=== PATIENT | female | born 1980 | race Caucasian/White ===

== ENCOUNTER 2023-12-29 12:32 | Emergency (ER) | payer BC, SELFPAY ==
[2023-12-29 12:44] VITALS: BP 162/93; PULSE 64; RESP 17; TEMP 37; O2SAT 99; BMI 36.6
--- NOTE | 2023-12-29 14:23 | CT_ITS ---
Patient: ANGEL ABDULLAHI Facility:?[facility] Patient ID:?[id number] Site Patient ID:?[id number]. Site :?1980 Study:?CT-Head w/o-12/29/2023 2:41:59 PM Ordering Physician:David Andino Final Report: INDICATION: Ptosis. Headaches. Sinus symptoms. TECHNIQUE: CT of the head without contrast. Coronal and sagittal reformats are included. COMPARISON: None. FINDINGS: No acute intracranial hemorrhage. No mass effect or midline shift. No hydrocephalus or extra-axial collections. White matter is within normal limits for age. No acute osseous abnormalities. A right maxillary sinus retention cyst. Paranasal sinuses and mastoid air cells are otherwise clear. Normal soft tissues. IMPRESSION: IMPRESSION: 1. No acute intracranial abnormalities. Please note that all CT scans at this facility use dose modulation, iterative reconstruction, and/or weight-based dosing when appropriate to reduce radiation dose to as low as reasonably achievable. Dictated by Arnaldo Little MD @ 12/29/2023 3:11:57 PM Signed by:?Arnaldo Little MD @12/29/2023 3:11:57 PM (Electronic Signature)
--- NOTE | 2023-12-29 14:23 | CT_ITS ---
Patient: ANGEL ABDULLAHI Facility:?[facility] Patient ID:?[id number] Site Patient ID:?[id number]. Site :?1980 Study:?CT-Facial w/o-12/29/2023 2:42:50 PM Ordering Physician:David Andino Final Report: INDICATION: Right-sided ptosis. Headaches. TECHNIQUE: CT of the face without contrast. Coronal reconstructions are included. COMPARISON: None. FINDINGS: There is a deformity of the right-sided lamina papyracea. There is associated medial herniation of orbital fat. No entrapment of the medial rectus muscle. No significant soft tissue injury. The orbital contents are normal in appearance. There is no evidence for penetrating injury to the ocular globes. The lenses are situated in their normally expected anterior locations. No radiodense or metallic foreign body is demonstrated. There is a right maxillary sinus retention cyst. Paranasal sinuses are otherwise clear. There is mild rightward nasal septal deviation. There is evidence of a right maxillary tooth extraction. There is a small amount of inflammatory changes within the adjacent buccal soft tissues. The visualized portions of the brain are normal in appearance. IMPRESSION: 1. 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 No entrapment of the medial rectus muscle. 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 2. Right maxillary sinus retention cyst. Paranasal sinuses are otherwise clear. 3. Evidence of right maxillary tooth extraction with mild associated inflammation. Please note that all CT scans at this facility use dose modulation, iterative reconstruction, and/or weight-based dosing when appropriate to reduce radiation dose to as low as reasonably achievable. Dictated by Arnaldo Little MD @ 12/29/2023 3:16:08 PM Signed by:?Arnaldo Little MD @12/29/2023 3:16:08 PM (Electronic Signature)
--- NOTE | 2023-12-29 14:25 | ED_ITS ---
HPI - Eye Problem General Chief complaint: Eye Problems Stated complaint: R eye discomfort, sluggishness Time Seen by Provider: 12/29/23 12:52 History of Present Illness HPI Narrative: This 43-year-old female comes in reporting which she described as a sluggish right eye. She states that it seems that her right eyelid responds more slowly when blinking and when opening and closing. She does report a headache around the right frontal area of her head. She has some light sensitivity and has had some nausea. She also states that she had a couple teeth removed about a month ago in the right upper row of teeth. She does have some facial pain in this area. She does not report any visual changes. She has not have dry eye or neurologic deficit. She does not have any fevers. Related Data Home Medications Medication Instructions Recorded Confirmed bupropion HCl 150 mg 24 hr tablet, 150 mg PO QAM 12/29/23 12/29/23 extended release hydrochlorothiazide 12.5 mg tablet 12.5 mg PO DAILY 12/29/23 12/29/23 lisinopril 40 mg tablet 40 mg PO DAILY 12/29/23 12/29/23 lorazepam 0.5 mg tablet 0.5 mg PO BID PRN anxiety 12/29/23 12/29/23 Previous Rx's Medication Instructions Recorded amoxicillin 875 mg-potassium 1 tab PO BID #14 tabs 12/29/23 clavulanate 125 mg tablet methylprednisolone 4 mg tablets in See Rx Instructions PO .COMPLEX 12/29/23 a dose pack (Medrol (Adelfo)) #21 ea Allergies Allergy/AdvReac Type Severity Reaction Status Date / Time No Known Drug Allergies Allergy Verified 12/29/23 12:43 Review of Systems Status of ROS: Reports: 10 or more systems reviewed and unremarkable except as noted in History and below Narrative: Constitutional: No fevers, no weight gain or loss. Eyes: No discharge. No vision changes. Right eyelid ptosis. HENT: No congestion, no sore throat, no ear pain. Cardiovascular: No chest pain, no palpitations. Respiratory: No shortness of breath, no wheezes, no cough. Gastrointestinal: No abdominal pain, no vomiting, no diarrhea. Genitourinary: No dysuria, no hematuria. Musculoskeletal: Normal range of motion. Skin: No rashes, no pruritis. Neurological: No dizziness, weakness, sensory change, speech change. Endo/Heme/Allergies: No bruising or bleeding. No polydipsia. Pysch: no suicidality, no anxiety, no insomnia. All other systems reviewed and are negative. PFSH PFS Social History Smoking Status: Current every day smoker How often do you have a drink containing alcohol: monthly or less AUDIT-C Alcohol total score: 1 Non-prescribed substance use: marijuana (any form) Exam Narrative: Exam Narrative: Constitutional: Well-developed, well-nourished, no acute distress. HEENT: Normocephalic, atraumatic. The right eyelid does appear to move a little slower and may not open quite as wide his left eye. Funduscopic exam is normal bilaterally. Neck: Normal range of motion. Nontender. Supple. Heart: Regular. No murmurs. Normal rate. Intact distal pulses. Lungs: Clear to auscultation. No chest discomfort. No wheezes, rhonchi, or rales. Abdomen: Normal bowel sounds. Nontender. No rebound tenderness. Genitalia: Deferred. Back: No midline tenderness. Normal range of motion. Extremities: Normal range of motion. No injury. Skin: Intact. No rash. Warm. No erythema or pallor. Neurologic: No altered sensation. No weakness. Alert and oriented. No facial asymmetry. Psychiatric: No suicidality. No anxiety or depression. No insomnia. Nursing notes and vitals signs are reviewed. Const: Vital Signs, click to edit/add: Vital Signs - 24 hr 12/29/23 12:44 Temperature 98.6 F Pulse Rate [Pulse Oximeter] 64 Respiratory Rate 17 Blood Pressure [Ri ght Upper Arm] 162/93 H Pulse Oximetry 99 Oxygen Delivery Me thod Room Air Course Vital Signs Vital signs: Initial Vital Signs Temperature 98.6 F 12/29/23 12:44 Temperature Source Temporal Artery Scan 12/29/23 12:44 Pulse Rate 64 12/29/23 12:44 Respiratory Rate 17 12/29/23 12:44 Blood Pressure 162/93 H 12/29/23 12:44 Blood Pressure Mean 116 H 12/29/23 12:44 Pulse Oximetry 99 12/29/23 12:44 Oxygen Delivery Method Room Air 12/29/23 12:44 Vital Signs Temperature 98.6 F 12/29/23 12:44 Pulse Rate 64 03/08/24 12:44 Respiratory Rate 17 12/29/23 12:44 Blood Pressure 162/93 H 12/29/23 12:44 Pulse Oximetry 99 12/29/23 12:44 Oxygen Delivery Method Room Air 12/29/23 12:44 Temperature 98.6 F 12/29/23 12:44 Pulse Rate 64 12/29/23 12:44 Respiratory Rate 17 12/29/23 12:44 Blood Pressure 162/93 H 12/29/23 12:44 Pulse Oximetry 99 12/29/23 12:44 Oxygen Delivery Method Room Air 12/29/23 12:44 MDM - Eye Problem MDM Narrative Medical decision making narrative: This patient comes in reporting symptoms as described above. She does have some facial pain and right-sided headache and states that her eyelid seems to be moving a little slower than compared with the left eyelid. I did obtain CT imaging of her head and facial bones. By my review there appears to be evidence of a right maxillary sinusitis with fluid in the sinus. CT imaging of the head shows no acute findings. Radiology report is pending. I relayed these matters to the patient in indicated plan to prescribe Augmentin and Medrol Dosepak. She is agreeable to this plan. She is okay to be discharged home. I did describe signs and symptoms that if they were to happen she should immediately return for further evaluation and treatment. Discharge Plan Discharge Clinical Impression: Sinusitis Patient Disposition: Home, Self-Care Condition: Stable Additional Instructions: Take medication as prescribed. Follow up with MD return if worsening symptoms happen. Prescriptions: New methylprednisolone [Medrol (Adelfo)] 4 mg tablets,dose pack See Rx Instructions .ROUTE .COMPLEX Qty: 21 0RF Rx Instructions: orally per package directions amoxicillin-pot clavulanate 875-125 mg tablet 1 tab PO BID Qty: 14 0RF No Action lorazepam 0.5 mg tablet 0.5 mg PO BID PRN (Reason: anxiety) lisinopril 40 mg tablet 40 mg PO DAILY bupropion HCl 150 mg tablet extended release 24 hr 150 mg PO QAM hydrochlorothiazide 12.5 mg tablet 12.5 mg PO DAILY Follow Up/Referrals: Sherwin Duarte MD [Primary Care Provider] - Stand Alone Forms: Standardized Safety Info Instructions
== END 2023-12-29 15:57 | disposition home or self-care (01) ==
PROVIDERS: Emergency Provider Emergency Medicine Emergency Medical Services; PCP Family Medicine
DX: J32.9 Chronic sinusitis, unspecified (principal)
CPT/HCPCS: 70450; 70486; 99284; 99285